=== PATIENT | male | born 1985 | race Hispanic/Latino ===

== ENCOUNTER 2020-07-02 15:10 | Inpatient (IN) | payer OTHER ==
--- OUTSIDE RECORDS SUMMARY | 2020-07-02 15:12 | XMS REPORT | Continuity of Care Document ---
:1985 Author Organization [facility] t Address 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 Allergies, Adverse Reactions, Alerts This patient has no known allergies or adverse reactions. Medications This patient has no known medications. Procedures This patient has no known procedures. Encounters Start End Encounter Admission Attending Care Care Encounter Source Date/Time Date/Time Type Type Clinicians Facility Department ID 2020-03-18 2020-03-18 Laboratory Lab, [facility] [id number] 17:43:53 18:03:53 Only Fam Pob I Health [id number] [place] [id number] Professio [phone] nal [facility] Office Building One 2019-06-17 2019-06-[address] [facility] [phone] [id number] 00:00:00 00:00:00 J[facility] [id number] [place] [id number] Professio [phone] nal 044 [address] One 2019-06-17 2019-06-17 Telephone Delia [facility] [id number] 00:00:00 00:00:00 Jael LIZZ [id number] [facility] [phone] [id number] 2019-06-16 2019-06-16 Urgent Pob1, Acute [facility] [id number] 13:48:35 14:19:04 [facility] [id number] [place] [id number] Profess [phone] nal 044 [address] One 2019-06-16 2019-06-16 Orders Doctor IRISH [id number] 00:00:00 00:00:00 Only Unassigned, [place] [id number] [place] [facility] [id number] Results This patient has no known results.
[2020-07-02 16:54] LABS: Absolute Lymphocytes (CBC) 1.4 K/uL (0.7-4.9); Basophils % 0.2 % (0-1.3); Hematocrit 51.5 % (39.6-49.0); Lymphocytes % 10.8 % (15.3-44.8); MPV 9.7 fL (7.6-11.3); RBC Red Blood Cell Count 6.09 M/uL (4.33-5.43)
[2020-07-02] MEDS ORDERED: ONDANSETRON 4 MG/2 ML VIAL ONE (17:01)
[2020-07-02] MEDS ORDERED: NA CHLORIDE 0.9% 1,000 ML ONE (17:01)
[2020-07-02 17:07] LABS: Albumin 3.7 g/dL (3.4-5.0); Bilirubin Direct 0.4 mg/dL (0-0.2); Bilirubin Total 1.4 mg/dL (0.2-1.0); Potassium 3.6 mmol/L (3.5-5.1)
[2020-07-02] MEDS ORDERED: MORPHINE 4 MG/ML SYR ONE (17:09)
--- NOTE | 2020-07-02 17:50 | RAD REPORT ---
EXAM DESCRIPTION: CT - Abdomen Pelvis W Contrast - 07/02/2020 5:40 pm CLINICAL HISTORY: Abd pain;Pain COMPARISON: <Comparisons> TECHNIQUE: Biphasic, helical CT imaging of the abdomen and pelvis was performed following 100 ml non -ionic IV contrast. No oral contrast. All CT scans are performed using dose optimization technique as appropriate and may include automated exposure control or mA/KV adjustment according to patient size. FINDINGS: No suspicious findings in the lung bases. The liver, spleen, and pancreas show no suspicious focal findings. The liver does show diffuse mild f atty infiltration. Gallbladder and biliary tree are also without suspicious finding. Symmetric renal function is seen with no hydronephrosis or suspicious renal mass. No pyelonephritis o r acute parenchymal process. No bladder abnormalities. No adrenal abnormalities. Prostate gland and seminal vesicles are normal. No stomach or small bowel abnormality. The appendix is well-visualized and normal. From cecum through proximal sigmoid colon no abnormality seen. Patient has a few sigmoid diverticula. There is a 5 cent imeter long segment of the mid sigmoid colon that shows circumferential wall thickening and edema. Th ere was 1 small punctate extraluminal air collection adjacent to the involved sigmoid colon. There is significant stranding and edema in the adjacent fat with small reactive lymph nodes seen. Distal sig moid colon and rectum show no acute findings. No free air, free fluid or inflammatory stranding. No hernia, mass or bulky lymphadenopathy. No suspicious bony findings. IMPRESSION: A 5 centimeter long segment mid sigmoid colon shows circumferential wall thickening and edema. There is significant stranding and edema in the adjacent fat with a punctate extraluminal air collection immediately adjacent to the colon. No distant free air. No abscess. No evidence for extravasation of intraluminal content. Patient does have a few sigmoid diverticula an acute diverticulitis would be the most likely etiology . Nonspecific colitis would be possible. Mass would be unusual in a patient this age. The appendix is normal.
[2020-07-02] MEDS ORDERED: CEFTRIAXONE/SWI 1gm 2 GM/20 ML SYR ONE (18:15)
[2020-07-02] MEDS ORDERED: METRONIDAZOLE 500mg IVPB 500 MG/100 ML BAG IV ONE (18:15)
[2020-07-02] MEDS ORDERED: CIPROFLOXACIN 400mg IV 400 MG/200 ML BAG IV ONE (18:15)
--- NOTE | 2020-07-02 18:30 | ER ---
Nurse's Notes [facility] Name: Sriram Esquivel Age: 34 yrs Sex: Male : 1985 Arrival Date: 07/02/2020 Time: 15:16 Bed 25 Private MD: Diagnosis: Diverticulitis of intestine, part unspecified, with perforation and abscess without bleeding;Elevated white blood cell count;Abdominal tenderness Presentation: 07/02 15:36 Chief complaint: Patient states: Upper abdominal pain, epigastric pain and RLQ pain ca1 since yesterday. Denies N/V/diarrea. Coronavirus screen: Client denies travel out of the [place] in the last 14 days. At this time, the client does not indicate any symptoms associated with coronavirus-19. Ebola Screen: Patient negative for fever greater than or equal to 101.5 degrees Fahrenheit, and additional compatible Ebola Virus Disease symptoms Patient denies exposure to infectious person. Patient denies travel to an Ebola-affected area in the 21 days before illness onset. No symptoms or risks identified at this time. Initial Sepsis Screen: Does the patient meet any 2 criteria? No. Patient's initial sepsis screen is negative. Does the patient have a suspected source of infection? No. Patient's initial sepsis screen is negative. Risk Assessment: Do you want to hurt yourself or someone else? Patient reports no desire to harm self or others. Onset of symptoms was July 02, 2020. 15:36 Method Of Arrival: Ambulatory ca1 15:36 Acuity: SUZANNA 3 ca1 Historical: - Allergies: 15:38 No Known Allergies; ca1 - Home Meds: 15:38 None [Active]; ca1 - PMHx: 15:38 None; ca1 - PSHx: 15:38 Knee surgery; ca1 - Immunization history:: Client reports receiving the 2nd dose of the Covid vaccine, Client reports receiving the 1st dose of the Covid vaccine, Flu vaccine is up to date. - Social history:: Smoking status: Patient denies any tobacco usage or history of. - Family history:: not pertinent. Screenin:15 Abuse screen: Denies threats or abuse. Denies injuries from another. Nutritional iw screening: No deficits noted. Tuberculosis screening: No symptoms or risk factors identified. Fall Risk IV access (20 points). Assessment: 17:15 General: Appears in no apparent distress. Behavior is calm, cooperative. Pain: iw Complains of pain in epigastric area Pain radiates to right lower quadrant Pain currently is 8 out of 10 on a pain scale. Neuro: Level of Consciousness is awake, alert, obeys commands, Oriented to person, place, time, situation, Moves all extremities. Full function. Respiratory: Respiratory effort is even, unlabored, Respiratory pattern is regular, symmetrical. GI: Abdomen is non-distended, Bowel sounds present X 4 quads. Abd is soft X 4 quads Abdomen is tender to palpation in right lower quadrant. Musculoskeletal: Range of motion: intact in all extremities. 18:15 Reassessment: Patient appears in no apparent distress at this time. Patient and/or iw family updated on plan of care and expected duration. Pain level reassessed. Patient is alert, oriented x 3, equal unlabored respirations, skin warm/dry/pink. Vital Signs: 15:36 BP 138 / 83; Pulse 77; Resp 16 S; Temp 97.3; Pulse Ox 98% on R/A; Weight 113.4 kg (R); ca1 Height 5 ft. 8 in. (172.72 cm) (R); Pain 9/10; 15:36 Body Mass Index 38.01 (113.40 kg, 172.72 cm) ca1 ED Course: 15:16 Patient arrived in ED. am2 15:38 Triage completed. ca1 15:38 Arm band placed on right wrist. ca1 16:19 Clive Barron MD is Attending Physician. francia 16:40 Renata Wilson RN is Primary Nurse. iw 16:40 Inserted saline lock: 20 gauge in left antecubital area, using aseptic technique. Blood dh4 collected. 17:15 Patient has correct armband on for positive identification. iw 17:40 CT Abd/Pelvis - IV Contrast Only: RO APPY In Process Unspecified. EDMS 18:28 Joe Knox is Hospitalizing Provider. francia 23:11 No provider procedures requiring assistance completed. Patient admitted, IV remains in em place. Administered Medications: 17:14 Drug: NS 0.9% 1000 ml Route: IV; Rate: 1 bolus; Site: left antecubital; iw 17:14 Drug: morphine 2 mg Route: IVP; Site: left antecubital; iw 17:14 Drug: morphine 2 mg Route: IVP; Site: left antecubital; iw 17:14 Drug: Zofran (Ondansetron) 4 mg Route: IVP; Site: left antecubital; iw 18:20 Drug: Rocephin - (cefTRIAXone) 2 grams Route: IVPB; Infused Over: 30 mins; Site: left iw antecubital; 18:25 Drug: Flagyl 500 mg Volume: 100 ml; Route: IVPB; Rate: 200 ml/hr; Infused Over: 30 iw mins; Site: left antecubital; 18:48 Drug: Cipro (ciprofloxacin) 400 mg Volume: 200 ml; Route: IVPB; Infused Over: 60 mins; iw Site: left antecubital; Outcome: 18:30 Decision to Hospitalize by Provider. francia 23:11 Admitted to Med/surg accompanied by tech, via wheelchair, with chart, Report called to em Silvia 23:11 Condition: stable 23:11 Instructed on the need for admit, Demonstrated understanding of instructions. 23:23 Patient left the ED. em Signatures: Dispatcher [employer] Clive William MD MD cha Munoz, Edgar, RN RN Renata Vanegas RN RN Mone Jennings am2 Karon Lin RN RN [facility] Yaya Moon [facility]
--- NOTE | 2020-07-02 18:31 | EDPHYS ---
Physician Documentation [facility] Name: Sriram Esquivel Age: 34 yrs Sex: Male : 1985 Arrival Date: 07/02/2020 Time: 15:16 Bed 25 Private MD: ED Physician Clive Barron HPI: 07/02 18:21 This 34 yrs old Male presents to ER via Ambulatory with complaints of francia Abdominal Pain - RLQ. 18:21 This 34 yrs old Male presents to ER via Ambulatory with complaints of francia Abdominal Pain - RLQ. 18:21 This 34 yrs old Male presents to ER via Ambulatory with complaints of francia Abdominal Pain - RLQ. 18:21 The patient presents with abdominal pain in the upper abdomen, in the lower abdomen, francia abdominal distention in the upper abdomen, in the lower abdomen. Onset: The symptoms/episode began/occurred 2 day(s) ago. The symptoms do not radiate. Associated signs and symptoms: Pertinent positives: nausea. The symptoms are described as constant, crampy. Modifying factors: The symptoms are alleviated by remaining still, the symptoms are aggravated by movement. Severity of pain: At its worst the pain was mild moderate this morning, in the emergency department the pain is unchanged. The patient has not experienced similar symptoms in the past. Historical: - Allergies: 15:38 No Known Allergies; ca1 - Home Meds: 15:38 None [Active]; ca1 - PMHx: 15:38 None; ca1 - PSHx: 15:38 Knee surgery; ca1 - Immunization history:: Client reports receiving the 2nd dose of the Covid vaccine, Client reports receiving the 1st dose of the Covid vaccine, Flu vaccine is up to date. - Social history:: Smoking status: Patient denies any tobacco usage or history of. - Family history:: not pertinent. ROS: 18:21 Constitutional: Negative for fever, chills, and weight loss, Eyes: Negative for injury, francia pain, redness, and discharge, ENT: Negative for injury, pain, and discharge, Neck: Negative for injury, pain, and swelling, Cardiovascular: Negative for chest pain, palpitations, and edema, Respiratory: Negative for shortness of breath, cough, wheezing, and pleuritic chest pain, Back: Negative for injury and pain, : Negative for injury, bleeding, discharge, and swelling, MS/Extremity: Negative for injury and deformity, Skin: Negative for injury, rash, and discoloration, Neuro: Negative for headache, weakness, numbness, tingling, and seizure, Psych: Negative for depression, anxiety, suicide ideation, homicidal ideation, and hallucinations, Allergy/Immunology: Negative for hives, rash, and allergies, Endocrine: Negative for neck swelling, polydipsia, polyuria, polyphagia, and marked weight changes, Hematologic/Lymphatic: Negative for swollen nodes, abnormal bleeding, and unusual bruising. 18:21 Abdomen/GI: Positive for abdominal pain, abdominal distension, of the right upper quadrant, left upper quadrant, right lower quadrant and left lower quadrant. Exam: 18:21 Constitutional: This is a well developed, well nourished patient who is awake, alert, francia and in no acute distress. Head/Face: Normocephalic, atraumatic. Eyes: Pupils equal round and reactive to light, extra-ocular motions intact. Lids and lashes normal. Conjunctiva and sclera are non-icteric and not injected. Cornea within normal limits. Periorbital areas with no swelling, redness, or edema. ENT: Nares patent. No nasal discharge, no septal abnormalities noted. Tympanic membranes are normal and external auditory canals are clear. Oropharynx with no redness, swelling, or masses, exudates, or evidence of obstruction, uvula midline. Mucous membranes moist. Neck: Trachea midline, no thyromegaly or masses palpated, and no cervical lymphadenopathy. Supple, full range of motion without nuchal rigidity, or vertebral point tenderness. No Meningismus. Chest/axilla: Normal chest wall appearance and motion. Nontender with no deformity. No lesions are appreciated. Cardiovascular: Regular rate and rhythm with a normal S1 and S2. No gallops, murmurs, or rubs. Normal PMI, no JVD. No pulse deficits. Respiratory: Lungs have equal breath sounds bilaterally, clear to auscultation and percussion. No rales, rhonchi or wheezes noted. No increased work of breathing, no retractions or nasal flaring. Back: No spinal tenderness. No costovertebral tenderness. Full range of motion. Male : Normal genitalia with no discharge or lesions. Skin: Warm, dry with normal turgor. Normal color with no rashes, no lesions, and no evidence of cellulitis. MS/ Extremity: Pulses equal, no cyanosis. Neurovascular intact. Full, normal range of motion. Neuro: Awake and alert, GCS 15, oriented to person, place, time, and situation. Cranial nerves II-XII grossly intact. Motor strength 5/5 in all extremities. Sensory grossly intact. Cerebellar exam normal. Normal gait. Psych: Awake, alert, with orientation to person, place and time. Behavior, mood, and affect are within normal limits. 18:21 Abdomen/GI: Inspection: distension, Bowel sounds: normal, Palpation: mild abdominal tenderness, in the right upper quadrant, left upper quadrant, right lower quadrant and left lower quadrant, Liver: no appreciated palpable abnormalities, Hernia: not appreciated. Vital Signs: 15:36 BP 138 / 83; Pulse 77; Resp 16 S; Temp 97.3; Pulse Ox 98% on R/A; Weight 113.4 kg (R); ca1 Height 5 ft. 8 in. (172.72 cm) (R); Pain 9/10; 15:36 Body Mass Index 38.01 (113.40 kg, 172.72 cm) ca1 MDM: 16:23 Patient medically screened. francia 18:26 Differential diagnosis: appendicitis, cholecystitis, Cholelithiasis, diverticulitis, francia Irritable bowel syndrome, non-specific abd pain, pancreatitis, urinary tract infection. Data reviewed: vital signs, nurses notes, lab test result(s), radiologic studies, CT scan. Data interpreted: monitoring and evaluation advisor: rate is 77 beats/min, rhythm is regular, Pulse oximetry: on room air is 98 %. Counseling: I had a detailed discussion with the patient and/or guardian regarding: the historical points, exam findings, and any diagnostic results supporting the discharge/admit diagnosis, lab results, radiology results. 07/02 16:21 Order name: Basic Metabolic Panel; Complete Time: 17:12 [facility] 07/02 16:21 Order name: CBC with Diff; Complete Time: 17:12 [facility] 07/02 16:21 Order name: Hepatic Function; Complete Time: 17:12 [facility] 07/02 16:21 Order name: Lipase; Complete Time: 17:12 [facility] 07/02 18:08 Order name: COVID-19 : Document "Date of Symptom Onset" if Symptomatic. 07/02 16:21 Order name: CT Abd/Pelvis - IV Contrast Only: RO APPY; Complete Time: 18:12 [facility] 07/02 19:19 Order name: Urine Dipstick-Ancillary; Complete Time: 19:38 [facility] 07/02 19:56 Order name: SARS-COV-2 RT PCR [facility] 07/02 16:21 Order name: IV Saline Lock; Complete Time: 16:40 [facility] 07/02 16:21 Order name: Labs collected and sent; Complete Time: 16:40 [facility] 07/02 16:21 Order name: Urine Dipstick-Ancillary (obtain specimen); Complete Time: 17:14 [facility] Administered Medications: 17:14 Drug: NS 0.9% 1000 ml Route: IV; Rate: 1 bolus; Site: left antecubital; iw 17:14 Drug: morphine 2 mg Route: IVP; Site: left antecubital; iw 17:14 Drug: morphine 2 mg Route: IVP; Site: left antecubital; iw 17:14 Drug: Zofran (Ondansetron) 4 mg Route: IVP; Site: left antecubital; iw 18:20 Drug: Rocephin - (cefTRIAXone) 2 grams Route: IVPB; Infused Over: 30 mins; Site: left iw antecubital; 18:25 Drug: Flagyl 500 mg Volume: 100 ml; Route: IVPB; Rate: 200 ml/hr; Infused Over: 30 iw mins; Site: left antecubital; 18:48 Drug: Cipro (ciprofloxacin) 400 mg Volume: 200 ml; Route: IVPB; Infused Over: 60 mins; iw Site: left antecubital; Disposition: 07/02/20 18:30 Hospitalization ordered by Joe Knox for Inpatient Admission. Preliminary diagnosis are Diverticulitis of intestine, part unspecified, with perforation and abscess without bleeding, Elevated white blood cell count, Abdominal tenderness. - Bed requested for Telemetry/MedSurg (Inpatient). - Status is Inpatient Admission. em - Condition is Stable. - Problem is new. - Symptoms have improved. Signatures: Dispatcher [employer] [facility] Marifer Bustillo RN RN mw Woody, Diana, RN RN dw Anderson, Corey, MD MD cha Munoz, Edgar, RN RN em Williams, Irene, RN RN Clive Mello PA PA cp Acob, Cheryl RN BERTA ca1 Corrections: (The following items were deleted from the chart) 18:59 18:10 CORONAVIRUS ordered. EDMS EDMS 20:45 18:30 Hospitalization Ordered by Joe Knox for Inpatient Admission. Preliminary dw diagnosis is Diverticulitis of intestine, part unspecified, with perforation and abscess without bleeding; Elevated white blood cell count; Abdominal tenderness. Bed requested for Telemetry/MedSurg (Inpatient). Status is Inpatient Admission. Condition is Stable. Problem is new. Symptoms have improved. francia 21:14 20:45 07/02/2020 18:30 Hospitalization Ordered by Joe Knox for Inpatient mw Admission. Preliminary diagnosis is Diverticulitis of intestine, part unspecified, with perforation and abscess without bleeding; Elevated white blood cell count; Abdominal tenderness. Bed requested for [email or web address] ER HOLD. Status is Inpatient Admission. Condition is Stable. Problem is new. Symptoms have improved. dw 23:23 21:14 07/02/2020 18:30 Hospitalization Ordered by Joe Knox for Inpatient em Admission. Preliminary diagnosis is Diverticulitis of intestine, part unspecified, with perforation and abscess without bleeding; Elevated white blood cell count; Abdominal tenderness. Bed requested for Telemetry/MedSurg (Inpatient). Status is Inpatient Admission. Condition is Stable. Problem is new. Symptoms have improved. mw
[2020-07-02 19:20] LABS: Urine Blood 1+ (Negative); Urine Glucose Negative (Negative); Urine Protein Negative (Negative); Urine Specific Gravity 1.025 (1.005-1.030)
[2020-07-02] MEDS: NA CHLORIDE 0.9% 1,000 ML IV SCH (20:04)
[2020-07-02] MEDS: MORPHINE 2 MG/ML SYR IV PRN (20:21)
[2020-07-02] MEDS ORDERED: MORPHINE 2 MG/ML SYR ONE (20:32)
--- NOTE | 2020-07-02 20:35 | P.HP ---
Certification for Inpatient Patient admitted to: Inpatient With expected LOS: >2 Midnights Patient will require the following post-hospital care: None Practitioner: I am a practitioner with admitting privileges, knowledge of patient current condition, hospital course, and medical plan of care. Services: Services provided to patient in accordance with Admission requirements found in Title 42 Section 412.3 of the Code of Federal Regulations Patient History Date of Service: 07/02/20 Reason for admission: Acute Diverticulitis History of Present Illness: 34-year-old female with no significant past medical history presents emergency department 1 day history of suprapubic and right lower quadrant abdominal pain. Patient evaluated in the emergency department found to have elevated white blood cell count 13.1, CT abdomen pelvis performed demonstrates 5 cm long segment of the mid sigmoid colon showing circumferential wall thickening and edema with significant stranding and edema in the adjacent fat with a punctate extraluminal air collection immediately adjacent to the colon, patient noted to have a few sigmoid diverticula and an acute diverticulitis would be the most likely etiology. General surgery was consulted and will see the patient, would like patient admitted to hospitalist service for IV antibiotics, pain meds, NPO. 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 moist/pink, EOMI, Sclerae nonicteric Neck: Supple, 2+ carotid pulse no bruit, No LAD, Without JVD or thyroid abnormality Respiratory: Clear to auscultation bilaterally, Normal air movement Cardiovascular: Regular rate/rhythm, Normal S1 S2 Gastrointestinal: Normal bowel sounds, No masses, No rebound, No guarding, Tenderness (Mild to moderate Suprapubic and right lower quadrant abdominal tenderness noted) Musculoskeletal: No tenderness Integumentary: No rashes Neurological: Normal speech, Normal strength at 5/5 x4 extr, Normal tone Lymphatics: No axilla or inguinal lymphadenopathy - Studies Laboratory Data (last 24 hrs) 07/02/20 16:39: WBC 13.10 H, Hgb 17.3, Hct 51.5 H, Plt Count 220 07/02/20 16:39: Sodium 137, Potassium 3.6, BUN 12, Creatinine 1.05, Glucose 92, Total Bilirubin 1.4 H, AST 19, ALT 63, Alkaline Phosphatase 88, Lipase 112 Assessment and Plan - Plan Assessment Acute sigmoid diverticulitis with microperforation Plan Acute sigmoid diverticulitis with microperforation: General surgery consulted, NPO, IV fluids/pain meds/antibiotics/anti emetics. SCDs for DVT prophylaxis in case of need for surgical intervention. Patient stable at this time, mild to moderate abdominal tenderness without rebound or guarding. Anticipate clinical improvement in the next 48-72 hr. Discharge Plan: Home Plan to discharge in: 72 Hours - Advance Directives Does patient have a Living Will: No Does patient have a Durable POA for Healthcare: No - Code Status/Comfort Care Code Status Assessed: Yes (Full code) Critical Care: No Time Spent Managing Pts Care (In Minutes): 55
[2020-07-02 23:50] VITALS: BMI 39.1
[2020-07-02] MEDS: ONDANSETRON 4 MG/2 ML VIAL IV PRN (23:59)
[2020-07-03] MEDS: MORPHINE 2 MG/ML SYR IV PRN ×3 (00:20→12:25)
[2020-07-03] MEDS: METRONIDAZOLE 500mg IVPB 500 MG/100 ML BAG IV SCH ×3 (02:14→18:36)
[2020-07-03 04:05] LABS: Absolute Lymphocytes (CBC) 1.3 K/uL (0.7-4.9); Basophils % 0.2 % (0-1.3); Hematocrit 46.3 % (39.6-49.0); Lymphocytes % 10.8 % (15.3-44.8); MPV 9.7 fL (7.6-11.3); RBC Red Blood Cell Count 5.46 M/uL (4.33-5.43)
[2020-07-03 04:24] LABS: ALT/SGPT 44 U/L (12-78); AST/SGOT 13 U/L (15-37); Albumin 3.1 g/dL (3.4-5.0); Alkaline Phosphatase 74 U/L (45-117); BUN Blood Urea Nitrogen 10 mg/dL (7-18); Bicarbonate 27 mmol/L (21-32); Bilirubin Total 1.1 mg/dL (0.2-1.0); Glucose Level 102 mg/dL (74-106); Magnesium 1.9 mg/dL (1.8-2.4); Potassium 3.7 mmol/L (3.5-5.1); Protein, Total 6.8 g/dL (6.4-8.2); Sodium Level 136 mmol/L (136-145)
[2020-07-03 04:27] LABS: Urine Appearance CLEAR (Clear); Urine Bilirubin NEGATIVE (Negative); Urine Blood TRACE (Negative); Urine Color DK YELLOW (Yellow); Urine Glucose NEGATIVE (Negative); Urine Protein NEGATIVE (Negative)
[2020-07-03 04:37] LABS: Urine Microscopic Reflex ORDER UMIC
[2020-07-03] MEDS ORDERED: KCL 20 MEQ/100 mL IVPB 20 MEQ/100 ML BAG IV SCH (05:00)
[2020-07-03 05:07] LABS: Urine Bacteria <20 /HPF (NONE SEEN)
[2020-07-03] MEDS: NA CHLORIDE 0.9% 1,000 ML IV SCH ×3 (06:04→20:33)
[2020-07-03] MEDS: CIPROFLOXACIN 400mg IV 400 MG/200 ML BAG IV SCH ×2 (10:33→20:33)
[2020-07-03] MEDS: ONDANSETRON 4 MG/2 ML VIAL IV PRN (12:27)
--- NOTE | 2020-07-03 15:53 | P.PN ---
Subjective Date of Service: 07/03/20 Chief Complaint: Acute Diverticulitis Subjective: Improving Physical Examination - Vital Signs Temperature: 97.8 F Blood Pressure: 113/69 Pulse: 69 Respirations: 16 Pulse Ox (%): 95 - Studies Laboratory Data (last 24 hrs) 07/02/20 16:39: WBC 13.10 H, Hgb 17.3, Hct 51.5 H, Plt Count 220 07/02/20 16:39: Sodium 137, Potassium 3.6, BUN 12, Creatinine 1.05, Glucose 92, Total Bilirubin 1.4 H, AST 19, ALT 63, Alkaline Phosphatase 88, Lipase 112 Assessment & Plan Discharge Plan: Home Plan to discharge in: 72 Hours Physician Review Additional Text: Physical exam: Patient alert, cooperative. Heart: Regular rate and rhythm Lungs: Clear to auscultation Abdomen: Tender to the left quadrant also to the right lower quadrant. Overall slight improvement noted. Extremities: Good range of motion to the upper lower extremities without any focal deficits. Assessment Acute sigmoid diverticulitis with microperforation Plan Acute sigmoid diverticulitis with microperforation: Spoke with surgery. Continue n.p.o. Continue IV fluids, pain medication, antiemetics and antibiotics. Continue DVT prophylaxis. Encourage ambulation. Provide incentive spirometer. Anticipate improvement over the next 3 to 5 days. Will transition to clear liquids once pain significantly improved and okay with surgery. Time Spent Managing Pts Care (In Minutes): 55
--- NOTE | 2020-07-03 18:48 | CON ---
Date of Consultation: 07/02/2020 Reason: Abdominal pain. History Of Present Illness: The patient is a 34-year-old gentleman who came to the emergency room wi th 2-day history of right lower quadrant suprapubic abdominal pain associated with nausea but no vomi ting. No diarrhea. No blood in the stool. He does have constipation. No dysuria or hematuria. No sore throat, runny nose, cough, headaches or dizziness. No chest pain. No fever or chills. Review of Systems: Otherwise unremarkable. Past Medical History: Negative. Past Surgical History: Bilateral knee surgery. Social History: The patient denies smoking. Drinks occasionally. Family History: Significant for diabetes. Physical Examination: Vital Signs: Currently stable. He is afebrile. GENERAL: He is awake, alert, and oriented x3. Head and Neck: Cranial nerves 2 through 12 grossly within normal limits. No neck masses. No JVD. Throat clear. Neck supple. Chest: Clear. Heart: S1, S2. Abdomen: Soft, nondistended. Positive bowel sounds in the suprapubic and right lower quadrant as we ll as left lower quadrant. A little bit on the midline, the patient has exquisite tenderness with mi nimal rebound but no rigidity or guarding. Extremities: Adequately perfused. Nontender. Neuro: Nonfocal. Imaging: CT of the abdomen and pelvis reviewed. Patient has a 5 cm long segment of mid sigmoid colo n. It shows superficial wall thickening and edema. There is significant stranding and edema in the adjacent fat with punctate external wound air collection immediately adjacent to the colon. There is no free air. No abscess. No evidence of extravasation of intraluminal content. He does have a few sigmoid diverticula and acute diverticulitis would be the most likely etiology. Nonspecific colitis will be possible. Mass would be unusual in a patient of this age. The appendix is normal. Laboratory Data: The white count on admission was 13.10, today is 12.40. There is left shift. Chem istry reviewed. Assessment: Acute sigmoid colitis, likely diverticulitis. Recommendations: Continue n.p.o., sips of ice chips are okay. IV fluids, IV antibiotics. Serial ab dominal exam. No need for any surgical intervention at this time. Once his symptoms improve on the IV antibiotics, we will begin diet, advance as tolerated, and he will need a dietary consultation for diverticular diet following which he will eventually need a colonoscopy in 4 to 6 weeks followed by possible segmental colon resection. Plan of care discussed in detail with the patient and Dr. Arboleda . ROSLYN/QUAN Voice ID: [id number] Report ID: [id number]
[2020-07-03] MEDS ORDERED: ACETAMINOPHEN 500 MG TAB PO PRN (19:59)
[2020-07-04] MEDS: METRONIDAZOLE 500mg IVPB 500 MG/100 ML BAG IV SCH ×3 (01:52→16:30)
[2020-07-04 04:11] LABS: Absolute Lymphocytes (CBC) 1.3 K/uL (0.7-4.9); Basophils % 0.3 % (0-1.3); Lymphocytes % 17.2 % (15.3-44.8); MPV 9.7 fL (7.6-11.3); RBC Red Blood Cell Count 5.19 M/uL (4.33-5.43)
[2020-07-04 04:48] LABS: ALT/SGPT 35 U/L (12-78); AST/SGOT 11 U/L (15-37); Albumin 2.8 g/dL (3.4-5.0); Alkaline Phosphatase 66 U/L (45-117); BUN Blood Urea Nitrogen 10 mg/dL (7-18); Bicarbonate 26 mmol/L (21-32); Bilirubin Total 0.8 mg/dL (0.2-1.0); Glucose Level 81 mg/dL (74-106); Protein, Total 6.6 g/dL (6.4-8.2); Sodium Level 144 mmol/L (136-145)
[2020-07-04] MEDS: CIPROFLOXACIN 400mg IV 400 MG/200 ML BAG IV SCH ×2 (07:41→20:40)
[2020-07-04] MEDS: NA CHLORIDE 0.9% 1,000 ML IV SCH (07:41)
--- NOTE | 2020-07-04 10:48 | P.PN ---
Subjective Date of Service: 07/04/20 Chief Complaint: Acute Diverticulitis Subjective: Improving, Doing well (Pain significantly improved. No significant nausea or vomiting.) Physical Examination - Vital Signs Temperature: 96.9 F Blood Pressure: 106/68 Pulse: 69 Respirations: 16 Pulse Ox (%): 96 Assessment & Plan Discharge Plan: Home Plan to discharge in: 48 Hours Physician Review Additional Text: Physical exam: Patient alert, cooperative. Pain to the abdomen significantly improved. No significant nausea or vomiting. Heart: Regular rate and rhythm Lungs: Clear to auscultation Abdomen: Pain to the left quadrant significantly improved. Still with some mild pain to the right lower quadrant. Bowel sounds decrease but stable. Extremities: Good range of motion to the upper lower extremities without any focal deficits. Assessment Acute sigmoid diverticulitis with microperforation Plan Acute sigmoid diverticulitis with microperforation: Continue with IV antibiotic therapy, pain control. Patient shows improvement. Will discuss with surgery. Anticipate clear liquids today. Encourage ambulation. Encourage incentive spirometer. Anticipate improvement over the next 2 to 3 days. Will discuss further with surgery about plan of care. Time Spent Managing Pts Care (In Minutes): 55
--- NOTE | 2020-07-04 10:52 | PN ---
Date of Progress Note: 07/04/2020 Subjective: The patient is awake, alert. No complaints. States the pain is much better. Objective: Vital Signs: Stable, afebrile. Abdomen: Soft, nondistended. Positive bowel sounds. Minimal tenderness, much better than yesterday . Laboratory Data: White count is normal. Assessment: Acute sigmoid diverticulitis with microperforation. Recommendations: Continue IV antibiotics and we will start him on clear liquids today and slowly adv ance. Plan of care discussed with the patient. /MODL Voice ID: [id number] Report ID: [id number]
[2020-07-04] MEDS: D5 0.45 NS 1,000 ML IV SCH ×2 (12:34→20:40)
[2020-07-04 22:12] VITALS: O2SAT 97
[2020-07-05] MEDS: metroNIDAZOLE 500 MG TABLET PO SCH ×4 (00:43→20:20)
[2020-07-05] MEDS: CIPROFLOXACIN HCL 500 MG TAB PO SCH ×3 (00:44→20:20)
--- NOTE | 2020-07-05 09:03 | P.PN ---
Subjective Date of Service: 07/05/20 Chief Complaint: Acute Diverticulitis Subjective: Improving (IV no longer in place. Patient did not want to have another IV placed last night. Patient tolerating diet.) Physical Examination - Vital Signs Temperature: 97.5 F Blood Pressure: 117/63 Pulse: 58 Respirations: 16 Pulse Ox (%): 97 Assessment & Plan Discharge Plan: Home Plan to discharge in: 24 Hours Physician Review Additional Text: Physical exam: Patient alert, cooperative. No significant pain or nausea. Patient without any IV. Patient declined to have another IV placed last night. Tolerating clear liquid diet. Heart: Regular rate and rhythm Lungs: Clear to auscultation Abdomen: No significant pain noted. Patient doing well.. Extremities: Good range of motion to the upper lower extremities without any focal deficits. Assessment Acute sigmoid diverticulitis with microperforation Plan Acute sigmoid diverticulitis with microperforation: Patient doing well. No significant pain or nausea. IV no longer in place. Patient declined to have IV placed last night. This was discussed in detail with the patient. We will try without IV at this time. Encourage oral intake. Patient to have full liquid diet. Encourage ambulation. Encourage incentive spirometer. IV antibiotic therapy switched to oral. Will discuss with surgery. If surgery desires patient to have IV then will have nurse place IV. Will consider adjusting diet to soft diet later today if stable. Anticipate improvement over the next 24 hours. Time Spent Managing Pts Care (In Minutes): 55
--- NOTE | 2020-07-05 14:05 | PN ---
Date of Progress Note: 07/05/2020 Subjective: The patient is awake, alert. No complaints. Objective: Vital Signs: Stable, afebrile. Abdomen: Soft, nondistended, nontender. Positive bowel sounds. Assessment: Acute sigmoid diverticulitis with microperforation. Recommendations: We will advance the diet to full liquids today and if tolerated to a low-fiber GI s oft diet and probable discharge tomorrow on oral antibiotics. /MODL Voice ID: [id number] Report ID: [id number]
[2020-07-06 05:02] VITALS: TEMP 97
[2020-07-06] MEDS: CIPROFLOXACIN HCL 500 MG TAB PO SCH (07:17)
[2020-07-06] MEDS: metroNIDAZOLE 500 MG TABLET PO SCH ×2 (07:17→14:00)
[2020-07-06 08:26] VITALS: BP 128/73
--- NOTE | 2020-07-06 09:11 | P.DS ---
Admission Date: 07/02/20 Discharge Date: 07/06/20 Primary Care Provider: Dr. Virgen Disposition: ROUTINE DISCHARGE Discharge Condition: GOOD Reason for Admission: Acute Diverticulitis Consultations: Surgery-Dr. Reynoso Procedures: COVID: Negative CT scan: FINDINGS: No suspicious findings in the lung bases. The liver, spleen, and pancreas show no suspicious focal findings. The liver does show diffuse mild fatty infiltration. Gallbladder and biliary tree are also without suspicious finding. Symmetric renal function is seen with no hydronephrosis or suspicious renal mass. No pyelonephritis or acute parenchymal process. No bladder abnormalities. No adrenal abnormalities. Prostate gland and seminal vesicles are normal. No stomach or small bowel abnormality. The appendix is well-visualized and normal. From cecum through proximal sigmoid colon no abnormality seen. Patient has a few sigmoid diverticula. There is a 5 centimeter long segment of the mid sigmoid colon that shows circumferential wall thickening and edema. There was 1 small punctate extraluminal air collection adjacent to the involved sigmoid co marlen. There is significant stranding and edema in the adjacent fat with small reactive lymph nodes seen. Distal sigmoid colon and rectum show no acute findings. No free air, free fluid or inflammatory stranding. No hernia, mass or bulky lymphadenopathy. No suspicious bony findings. IMPRESSION: A 5 centimeter long segment mid sigmoid colon shows circumferential wall thickening and edema. There is significant stranding and edema in the adjacent fat with a punctate extraluminal air collection immediately adjacent to the colon. No distant free air. No abscess. No evidence for extravasation of intraluminal content. Patient does have a few sigmoid diverticula an acute diverticulitis would be the most likely etiology. Nonspecific colitis would be possible. Mass would be unusual in a patient this age. The appendix is normal. Medical Problem List: Acute sigmoid diverticulitis with microperforation Brief History of Present Illness: 34-year-old male presented to the emergency room with abdominal pain. Patient denied any diarrhea or blood in the stool. Patient found to have diverticulitis. Patient admitted for further evaluation and treatment. Hospital Course: Patient presented with abdominal pain secondary to sigmoid diverticulitis with microperforation. Patient was admitted for IV antibiotic treatment and further evaluation. Surgery was consulted. No surgical intervention was required. His diet was advanced without any difficulty. Patient doing well at this time. At discharge patient will continue with Cipro 500 mg 1 pill twice daily and Flagyl 500 mg 3 times a day for 10 days. Patient will also be provided lactobacillus 1 pill twice daily. Patient will follow up with surgery in 1 week to follow-up his hospitalization. Patient will need to establish care with GI in the future for future evaluation including colonoscopy. Education on diverticulitis provid ed. Recommend follow-up with his PCP to further monitor and follow-up this hospitalization. Vital Signs/Physical Exam: Temp Pulse Resp BP Pulse Ox 97 F 67 16 128/73 97 07/06/20 07:40 07/06/20 07:40 07/06/20 07:40 07/06/20 07:40 07/06/20 07:40 General: Alert, In no apparent distress, Oriented x3, Cooperative HEENT: Atraumatic Neck: Supple Respiratory: Clear to auscultation bilaterally, Normal air movement Cardiovascular: Normal pulses, Regular rate/rhythm Gastrointestinal: Normal bowel sounds, No tenderness, No masses, No rebound, No guarding Musculoskeletal: No erythema, No tenderness, No warmth Integumentary: No tenderness/swelling Neurological: Normal speech, Normal strength at 5/5 x4 extr, Normal tone, Normal affect Laboratory Data at Discharge: WBC 7.30 K/uL (4.3-10.9) D 07/04/20 03:36 Hgb 14.8 g/dL (13.6-17.9) 07/04/20 03:36 Hct 44.0 % (39.6-49.0) 07/04/20 03:36 Plt Count 186 K/uL (152-406) 07/04/20 03:36 Sodium 144 mmol/L (136-145) 07/04/20 03:36 Potassium 4.0 mmol/L (3.5-5.1) 07/04/20 03:36 BUN 10 mg/dL (7-18) 07/04/20 03:36 Creatinine 0.89 mg/dL (0.55-1.3) 07/04/20 03:36 Glucose 81 mg/dL (74-106) 07/04/20 03:36 Magnesium 2.0 mg/dL (1.8-2.4) 07/04/20 03:36 Total Bilirubin 0.8 mg/dL (0.2-1.0) 07/04/20 03:36 AST 11 U/L (15-37) L 07/04/20 03:36 ALT 35 U/L (12-78) 07/04/20 03:36 Alkaline Phosphatase 66 U/L (45-117) 07/04/20 03:36 Lipase 112 U/L (73-393) 07/02/20 16:39 Home Medications: Ciprofloxacin HCl [Cipro 500 MG Tablet] 500 mg PO BID #20 tab 07/06/20 Lactobacillus Acidophilus [Acidophilus Lactobacilli] 1 each PO BID #20 capsule 07/06/20 metroNIDAZOLE [Flagyl*] 500 mg PO TID #30 tablet 07/06/20 New Medications: Lactobacillus Acidophilus [Acidophilus Lactobacilli] 1 each PO BID #20 capsule Ciprofloxacin HCl [Cipro 500 MG Tablet] 500 mg PO BID #20 tab metroNIDAZOLE [Flagyl*] 500 mg PO TID #30 tablet Physician Discharge Instructions: Patient presented with abdominal pain secondary to sigmoid diverticulitis with microperforation. Patient was admitted for IV antibiotic treatment and further evaluation. Surgery was consulted. No surgical intervention was required. His diet was advanced without any difficulty. Patient doing well at this time. No significant abdominal pain noted at discharge. At discharge patient will continue with Cipro 500 mg 1 pill twice daily and Flagyl 500 mg 3 times a day for 10 days. Patient will also be provided lactobacillus 1 pill twice daily. Patient will follow up with surgery in 1 week to follow-up his hospitalization. Patient will need to establish care with GI in the future for future evaluation including colonoscopy. Education on diverticulitis provided. Recommend foll ow-up with his PCP to further monitor and follow-up this hospitalization. Diet: GI soft Activity: Ad jarek Followup: Dillan ADAMESOT [Primary Care Provider] - Time spent managing pt's care (in minutes): 55
--- NOTE | 2020-07-06 15:35 | PN ---
Date of Progress Note: 07/06/2020 Subjective: The patient is awake, alert, no complaint, tolerating diet. Objective: Vital Signs: Stable, afebrile. Abdomen: Benign. Assessment: Acute sigmoid diverticulitis with microperforation. Recommendation: The patient is cleared from Surgery for discharge. Will need colonoscopy in 4 to 6 weeks. Discharge instructions given. ROSLYN/QUAN Voice ID: [id number] Report ID: [id number]
== END 2020-07-06 15:59 | disposition home or self-care (01) | DRG 392 ==
LOC: ER 15:10 → ERHOLD 19:30 → 4TH 21:28
PROVIDERS: ADMIT Family Medicine; ATTEND Family Medicine
DX: K57.20 Diverticulitis of large intestine with perforation and abscess without bleeding (principal); Z79.899 Other long term (current) drug therapy; Z20.822 Contact with and (suspected) exposure to COVID-19
CPT/HCPCS: 36415; 74177; 80048; 80053; 80076; 81003; 81015; 82947; 83690; 83735; 85025; 87040; 94010; 96374; 96375; 99285; J0696; J0744; J2270; J2405; J3480; J7030; J7799; Q9967; U0003

== ENCOUNTER → 2023-03-21 | Emergency (ER) | payer BC, OTHER ==
[~2023-03-21] MED LIST: ASPIRIN 81 MG CHEWABLE TABLET ONE; LORAZEPAM 1 MG TABLET ONE
[2023-03-21 05:37] LABS: Hematocrit 49.4 % (39.6-49.0); MCV 85.4 fL (80-100); MPV 8.7 fL (7.6-11.3); Platelets 227 thou/uL (152-406); RBC Red Blood Cell Count 5.78 M/uL (4.33-5.43)
[2023-03-21 05:38] LABS: Lymphocytes % 19.1 % (15.3-44.8)
[2023-03-21 05:53] LABS: Albumin 3.4 g/dL (3.4-5.0); Bilirubin Total 0.4 mg/dL (0.2-1.0); Potassium 3.9 mEq/L (3.5-5.1); Protein, Total 7.4 g/dL (6.4-8.2); Troponin High Sensitivity 5.5 pg/mL (<58.9)
[2023-03-21 05:57] LABS: SARS-CoV-2 Antigen Rapid Res Negative (Negative)
--- NOTE | 2023-03-21 05:59 | ER ---
Nurse's Notes [facility] Name: Sriram Esquivel Age: 37 yrs Sex: Male : 1985 Arrival Date: 03/21/2023 Time: 03:12 Bed 7 Private MD: Diagnosis: Anxiety disorder, unspecified;Chest pain, unspecified Presentation: 03/21 03:34 Chief complaint: Patient states: "felt like I was having an anxiety attack" with left pf1 arm tingling and left leg tingling,onset 2300 with left side chest discomfort of 3. Patient stated did not take his clonazepam tonight for anxiety. Patient stated has been dealing with a lot of stress. Coronavirus screen: Vaccine status: Patient reports receiving the 2nd dose of the covid vaccine. Client denies travel out of the [place] in the last 14 days. At this time, the client does not indicate any symptoms associated with coronavirus-19. Ebola Screen: Patient negative for fever greater than or equal to 101.5 degrees Fahrenheit, and additional compatible Ebola Virus Disease symptoms. Initial Sepsis Screen: Does the patient meet any 2 criteria? No. Patient's initial sepsis screen is negative. Does the patient have a suspected source of infection? No. Patient's initial sepsis screen is negative. Risk Assessment: Do you want to hurt yourself or someone else? Patient reports no desire to harm self or others. 03:34 Method Of Arrival: Ambulatory pf1 03:34 Acuity: SUZANNA 3 pf1 Triage Assessment: 05:30 General: Appears in no apparent distress. uncomfortable, Behavior is anxious. vc1 Respiratory: Reports shortness of breath at rest Onset: The symptoms/episode began/occurred suddenly, the patient has mild shortness of breath. Historical: - Allergies: 03:49 No Known Allergies; pf1 - PMHx: 03:49 Anxiety; depression; insomnia; pf1 - PSHx: 03:49 bilateral knee; pf1 - Immunization history:: Adult Immunizations up to date, Client reports receiving the 2nd dose of the Covid vaccine, Moderna Last tetanus immunization: > 10 years ago Flu vaccine is not up to date. - Social history:: Smoking status: Patient denies any tobacco usage or history of. Patient/guardian denies using alcohol, street drugs. Screenin:14 [facility] ED Fall Risk Assessment (Adult) History of falling in the last 3 months, vc1 including since admission No falls in past 3 months (0 pts) Confusion or Disorientation No (0 pts) Intoxicated or Sedated No (0 pts) Impaired Gait No (0 pts) Mobility Assist Device Used No (0 pt) Altered Elimination No (0 pt) Score/Fall Risk Level 0 - 2 = Low Risk Oriented to surroundings, Maintained a safe environment, Educated pt \\T\\ family on fall prevention, incl call for assistance when getting out of bed. Abuse screen: Denies threats or abuse. Nutritional screening: No deficits noted. Tuberculosis screening: No symptoms or risk factors identified. Assessment: 05:00 General: Appears in no apparent distress. Behavior is cooperative, combative. vc1 05:00 Pain: Complains of pain in chest Pain radiates to left sternocleidomastoid. Neuro: No vc1 deficits noted. Level of Consciousness is awake, alert, obeys commands, Oriented to person, place, time, situation, Appropriate for age. Cardiovascular: Rhythm is sinus rhythm. Respiratory: Airway is patent Respiratory effort is even, unlabored, Breath sounds are clear. GI: No deficits noted. No signs and/or symptoms were reported involving the gastrointestinal system. : No deficits noted. No signs and/or symptoms were reported regarding the genitourinary system. EENT: No deficits noted. No signs and/or symptoms were reported regarding the EENT system. Derm: No deficits noted. No signs and/or symptoms reported regarding the dermatologic system. 06:07 Reassessment: Patient and/or family updated on plan of care and expected duration. Pain vc1 level reassessed. Patient is alert, oriented x 3, equal unlabored respirations, skin warm/dry/pink. Patient states feeling better. Patient states symptoms have improved. Vital Signs: 03:34 BP 129 / 93; Pulse 75; Resp 16; Temp 98.7; Pulse Ox 98% ; Weight 112.49 kg; Height 5 pf1 ft. 7 in. ; Pain 3/10; 03:34 Body Mass Index 38.84 (112.49 kg, 170.18 cm) pf1 03:34 Pain Scale: Adult pf1 ED Course: 03:13 Patient arrived in ED. ag3 03:24 Clive Barron MD is Attending Physician. francia 03:49 Triage completed. pf1 04:30 Chest Pa And Lat (2 Views) XRAY In Process Unspecified. EDMS 05:00 Arm band placed on right wrist. vc1 05:00 Patient has correct armband on for positive identification. Bed in low position. Call vc1 light in reach. Pulse ox on. NIBP on. 05:34 Inserted saline lock: 20 gauge in right forearm, using aseptic technique. Blood km8 collected. 05:59 Esteban Walters MD is Referral Physician. [facility] 05:59 Nitesh Ramos MD is Referral Physician. francia 06:14 No provider procedures requiring assistance completed. vc1 06:29 IV discontinued, intact, bleeding controlled, No redness/swelling at site. Pressure vc1 dressing applied. Administered Medications: 05:54 Drug: Aspirin PO Chewable Tablet 162 mg PO once Route: PO; vc1 05:54 Drug: LORazepam PO 1 mg PO once Route: PO; vc1 06:06 Drug: NS 0.9% IV 1000 ml IV at 1 bolus Per protocol; 1000 mL bolus Route: IV; Rate: 1 vc1 bolus; Site: right antecubital; Medication: 06:15 VIS not applicable for this client. vc1 Outcome: 05:59 Discharge ordered by . francia 06:29 Discharged to home ambulatory, vc1 06:29 Condition: good 06:29 Discharge instructions given to patient, Instructed on discharge instructions, follow up and referral plans. medication usage, Demonstrated understanding of instructions, medications, wound care, Prescriptions given X 1, 06:30 Patient left the ED. vc1 Signatures: Dispatcher [employer] EDLA Clive Barron MD MD cha Gomez, Alice ag3 Lynnette Maya RN RN vc1 Lacey Gil RN RN pf1 Johnna Carter, BERTA RN km8 Corrections: (The following items were deleted from the chart) 03:51 03:49 PMHx: anixety; pf1 pf1
--- NOTE | 2023-03-21 05:59 | EDPHYS ---
Physician Documentation [facility] Name: Sriram Esquivel Age: 37 yrs Sex: Male : 1985 Arrival Date: 03/21/2023 Time: 03:12 Bed 7 Private MD: ED Physician Clive Barron HPI: 03/21 05:18 This 37 yrs old Male presents to ER via Ambulatory with complaints of Chest francia Congestion, Shortness Of Breath, Numbness Of Arm. 05:18 The patient has shortness of breath at rest, with light activity. Onset: The francia symptoms/episode began/occurred just prior to arrival, last night. Duration: The symptoms are continuous, but are markedly better than the original presentation. The patient's shortness of breath is aggravated by nothing, is alleviated by nothing. Associated signs and symptoms: Pertinent positives: anxious. Severity of symptoms: At their worst the symptoms were mild in the emergency department the symptoms are unchanged. anxiety yes. Historical: - Allergies: 03:49 No Known Allergies; pf1 - PMHx: 03:49 Anxiety; depression; insomnia; pf1 - PSHx: 03:49 bilateral knee; pf1 - Immunization history:: Adult Immunizations up to date, Client reports receiving the 2nd dose of the Covid vaccine, Moderna Last tetanus immunization: > 10 years ago Flu vaccine is not up to date. - Social history:: Smoking status: Patient denies any tobacco usage or history of. Patient/guardian denies using alcohol, street drugs. ROS: 05:19 Constitutional: Negative for fever, chills, and weight loss, Eyes: Negative for injury, francia pain, redness, and discharge, ENT: Negative for injury, pain, and discharge, Neck: Negative for injury, pain, and swelling, Respiratory: Negative for shortness of breath, cough, wheezing, and pleuritic chest pain, Abdomen/GI: Negative for abdominal pain, nausea, vomiting, diarrhea, and constipation, Back: Negative for injury and pain, : Negative for injury, bleeding, discharge, and swelling, MS/Extremity: Negative for injury and deformity, Skin: Negative for injury, rash, and discoloration, Neuro: Negative for headache, weakness, numbness, tingling, and seizure, Allergy/Immunology: Negative for hives, rash, and allergies, Endocrine: Negative for neck swelling, polydipsia, polyuria, polyphagia, and marked weight changes, Hematologic/Lymphatic: Negative for swollen nodes, abnormal bleeding, and unusual bruising, 05:19 Cardiovascular: Positive for chest pain, palpitations, 05:19 Respiratory: Positive for cough, with no reported sputum, 05:19 MS/extremity: Positive for tingling, Exam: 05:19 Constitutional: This is a well developed, well nourished patient who is awake, alert, francia and in no acute distress. Head/Face: Normocephalic, atraumatic. Eyes: Pupils equal round and reactive to light, extra-ocular motions intact. Lids and lashes normal. Conjunctiva and sclera are non-icteric and not injected. Cornea within normal limits. Periorbital areas with no swelling, redness, or edema. ENT: Nares patent. No nasal discharge, no septal abnormalities noted. Tympanic membranes are normal and external auditory canals are clear. Oropharynx with no redness, swelling, or masses, exudates, or evidence of obstruction, uvula midline. Mucous membranes moist. Neck: Trachea midline, no thyromegaly or masses palpated, and no cervical lymphadenopathy. Supple, full range of motion without nuchal rigidity, or vertebral point tenderness. No Meningismus. Chest/axilla: Normal chest wall appearance and motion. Nontender with no deformity. No lesions are appreciated. Cardiovascular: Regular rate and rhythm with a normal S1 and S2. No gallops, murmurs, or rubs. Normal PMI, no JVD. No pulse deficits. Respiratory: Lungs have equal breath sounds bilaterally, clear to auscultation and percussion. No rales, rhonchi or wheezes noted. No increased work of breathing, no retractions or nasal flaring. Abdomen/GI: Soft, non-tender, with normal bowel sounds. No distension or tympany. No guarding or rebound. No evidence of tenderness throughout. Back: No spinal tenderness. No costovertebral tenderness. Full range of motion. Male : Normal genitalia with no discharge or lesions. Skin: Warm, dry with normal turgor. Normal color with no rashes, no lesions, and no evidence of cellulitis. MS/ Extremity: Pulses equal, no cyanosis. Neurovascular intact. Full, normal range of motion. Neuro: Awake and alert, GCS 15, oriented to person, place, time, and situation. Cranial nerves II-XII grossly intact. Motor strength 5/5 in all extremities. Sensory grossly intact. Cerebellar exam normal. Normal gait. Psych: Awake, alert, with orientation to person, place and time. Behavior, mood, and affect are within normal limits. 05:19 ECG was reviewed by the Attending Physician. 05:34 Musculoskeletal/extremity: DVT Exam: No signs of deep vein thrombosis. no pain, no francia swelling, no tenderness, negative Homans' sign noted on exam, no appreciated bluish discoloration, no erythema, no increased warmth, 06:05 ECG was reviewed by the Attending Physician. [facility] Vital Signs: 03:34 BP 129 / 93; Pulse 75; Resp 16; Temp 98.7; Pulse Ox 98% ; Weight 112.49 kg; Height 5 pf1 ft. 7 in. ; Pain 3/10; 03:34 Body Mass Index 38.84 (112.49 kg, 170.18 cm) pf1 03:34 Pain Scale: Adult pf1 MDM: 03:53 Patient medically screened. [facility] 05:21 Differential diagnosis: Anxiety Reaction Bronchitis drug withdrawal. depression, chest francia wall pain, esophagitis, pneumonia, Psychogenic reactive airway disease, Unstable Angina. Antibiotic administration: Not indicated. HEART Score: ECG: Normal (0), Age: < or = 45 years (0), Risk Factors: No Risk Factors Known (0), Troponin: < or = 1 x Normal Limit (0), Total Score = 0. Differential Diagnosis: Obstructed Airway Bronchitis Influenza Upper Respiratory Infection Asthma Exacerbation Viral Syndrome Pneumonia. VERONIKA Risk Score: TOTAL SCORE = 0. Immunization status:. Data reviewed: vital signs, nurses notes, lab test result(s), EKG, radiologic studies, plain films. Consideration of Admission/Observation Patient was admitted/placed on observation. Escalation of care including admission/observation considered. I considered the following discharge prescriptions or medication management in the emergency department Medications were administered in the Emergency Department. See MAR. Care significantly affected by the following chronic conditions: depression, anxiety, insomnia. 03/21 03:26 Order name: CBC with Diff; Complete Time: 05:59 [facility] 03/21 03:26 Order name: Comprehensive Metabolic Panel; Complete Time: 05:59 [facility] 03/21 03:26 Order name: SARS RAPID; Complete Time: 05:59 [facility] 03/21 03:26 Order name: Flu; Complete Time: 05:59 [facility] 03/21 03:26 Order name: Troponin HS; Complete Time: 05:59 [facility] 03/21 03:26 Order name: BNP; Complete Time: 05:59 [facility] 03/21 03:26 Order name: Chest Pa And Lat (2 Views) XRAY [facility] 03/21 03:26 Order name: EKG; Complete Time: 03:27 [facility] 03/21 05:14 Order name: EKG: repeat; Complete Time: 05:15 [facility] 03/21 05:14 Order name: EKG - Nurse/Tech; Complete Time: 06:06 [facility] EC:19 Rate is 74 beats/min. Rhythm is regular. QRS [place] is Normal. UT interval is normal. QRS francia interval is normal. QT interval is normal. No Q waves. T waves are Normal. No ST changes noted. Clinical impression: Normal ECG and No evidence of ischemia. Interpreted by me. Reviewed by me. 06:05 Rate is 71 beats/min. Rhythm is regular. QRS [place] is Normal. UT interval is normal. QRS francia interval is normal. QT interval is normal. No Q waves. T waves are Normal. No ST changes noted. Clinical impression: Normal ECG and No evidence of ischemia. Interpreted by me. Reviewed by me. Administered Medications: 05:54 Drug: Aspirin PO Chewable Tablet 162 mg PO once Route: PO; vc1 05:54 Drug: LORazepam PO 1 mg PO once Route: PO; vc1 06:06 Drug: NS 0.9% IV 1000 ml IV at 1 bolus Per protocol; 1000 mL bolus Route: IV; Rate: 1 vc1 bolus; Site: right antecubital; Disposition Summary: 03/21/23 05:59 Discharge Ordered Notes: Location: Home francia Problem: new farncia Symptoms: have improved francia Condition: Stable francia Diagnosis - Anxiety disorder, unspecified francia - Chest pain, unspecified francia Followup: francia - With: Private Physician - When: 2 - 3 days - Reason: Recheck today's complaints, Re-evaluation by your physician Followup: francia - With: Esteban Walters MD - When: 2 - 3 days - Reason: Recheck today's complaints, Re-evaluation by your physician Followup: francia - With: Nitesh Ramos MD - When: 2 - 3 days - Reason: Recheck today's complaints, Re-evaluation by your physician Discharge Instructions: - Discharge Summary Sheet francia - Panic Attack francia - Nonspecific Chest Pain, Adult francia - Nonspecific Chest Pain, Adult, [id number] francia - Panic Attack, [id number] francia - Aspirin and Your Heart francia - Managing Anxiety, Adult francia Forms: - Medication Reconciliation Form [facility] - Thank You Letter francia - Antibiotic Education francia - Prescription Opioid Use francia - Patient Portal Instructions francia - Leadership Thank You Letter francia Prescriptions: - Xanax 0.5 mg Oral Tablet - take 1 tablet ORAL route every 8 hours As needed; 20 tablet; Refills: 0, francia Product Selection Permitted Signatures: Dispatcher [employer] EDClive Foley MD MD cha Calcote, Vanessa RN RN vc1 Lacey Gil RN RN pf1 Corrections: (The following items were deleted from the chart) 03:51 03:49 PMHx: anixety; pf1 pf1
[2023-03-21 07:45] VITALS: BP 129/93; TEMP 98.7; O2SAT 98
--- NOTE | 2023-03-21 18:14 | RAD REPORT ---
EXAM DESCRIPTION: RAD - Chest Pa And Lat (2 Views) - 03/21/2023 4:28 am CLINICAL HISTORY: The patient is 37 years old and is Male; Cough;Dyspnea TECHNIQUE: Two views of the chest. COMPARISON: No relevant prior studies available. FINDINGS: Lungs: No pulmonary vascular congestion or consolidation. Pleural space: Unremarkable. No pneumothorax. Heart: Unremarkable. No cardiomegaly. Mediastinum: Unremarkable. Normal mediastinal contour. Bones/joints: No acute fracture visualized. Upper abdomen: No free air in the visualized upper abdomen. IMPRESSION: No acute cardiopulmonary process identified. Electronically signed by: Luz Desai MD 03/21/2023 06:29 AM AUTHORIZATION MANAGER Due to temporary technical issues with the PACS/Fluency reporting system, reports are being signed by the in house radiologists without review as a courtesy to insure prompt reporting. The interpreting radiologist is fully responsible for the content of the report.
== END ==
LOC: ER 03:12
DX: F41.9 Anxiety disorder, unspecified (principal); R05.9 Cough, unspecified; Z11.52 Encounter for screening for COVID-19
CPT/HCPCS: 36415; 71046; 80053; 83880; 84484; 85025; 87804; 87811; 93005; 99285